=== PATIENT | male | born 1955 | race Two or more races ===

== ENCOUNTER → 2019-01-02 06:00 | Outpatient (CLI) | payer OTHER | END | disposition home or self-care (01) | LOC: LAB 06:00 → AMB-ENDOS 10:30 → ADM 10:30 → AMB-ENDOS 01-10 10:30 → EDSTATUS 01-10 10:30 | DX: K57.20 Diverticulitis of large intestine with perforation and abscess without bleeding (principal); K91.89 Other postprocedural complications and disorders of digestive system; K62.4 Stenosis of anus and rectum ==

== ENCOUNTER 2019-10-06 08:10 | Day surgery (SDC) | payer OTHER | END 2019-10-06 16:15 | disposition home or self-care (01) | LOC: AMB-ENDOS 08:10 | DX: K62.4 Stenosis of anus and rectum (principal); K64.1 Second degree hemorrhoids ==

== ENCOUNTER → 2020-03-29 08:00 | Outpatient (CLI) | payer OTHER | END | disposition home or self-care (01) | LOC: LAB 08:00 → ADM 12:45 → AMB-ENDOS 04-05 12:45 → EDSTATUS 04-05 12:45 | PROVIDERS: ATTEND Colon & Rectal Surgery | DX: U07.1 COVID-19 (principal); K43.2 Incisional hernia without obstruction or gangrene; R19.4 Change in bowel habit; K62.4 Stenosis of anus and rectum; K57.20 Diverticulitis of large intestine with perforation and abscess without bleeding ==